=== PATIENT | female | born 1965 | race African-American/Black ===

== ENCOUNTER 2018-10-07 19:35 | Emergency (ER) | payer OTHER ==
[~2018-10-07] VITALS: Ht 165.1 cm; Wt 108.0 kg
[2018-10-07 20:15] LABS: Basophils # (auto) 0.1 uL; Basophils % (auto) 1.3 % (0.0-2.0); Eosinophils # (auto) 0.1 uL; Eosinophils % (auto) 1.9 % (0.0-7.0); Hematocrit 37.7 % (36.0-46.0); Hemoglobin 12.6 g/dL (12.2-16.2); Lymphocytes # (auto) 1.6 uL; Lymphocytes % (auto) 21.3 % (10.0-50.0); Mean Corpuscular Hemoglobin 30.5 pg (28.0-32.0); Mean Corpuscular Hgb Conc. 33.5 g/dL (32.0-36.0); Mean Corpuscular Volume 90.8 fL (80.0-100.0); Monocytes # (auto) 0.5 uL; Monocytes % (auto) 6.9 % (0.0-12.0); Neutrophils # (auto) 5.3 uL; Neutrophils % (auto) 68.6 % (37.0-80.0); Platelet Count (auto) 309 10^3/uL (140-450); Red Blood Cells 4.15 10^6/uL (4.0-5.20); Red Cell Distribution Width 13.8 % (11.8-14.3); White Blood Cell 7.7 10^3/uL (4.4-10.8)
[2018-10-07 20:31] LABS: BUN/Creatinine Ratio 11.7; Potassium 3.8 mmol/L (3.5-5.1)
[2018-10-07 20:32] LABS: Calcium 9.7 mg/dL (8.5-10.1)
[2018-10-07 20:35] LABS: Urine Bacteria NONE SEEN /hpf (None Seen); Urine Blood 1+ /uL (Negative); Urine Mucus FEW (None Seen); Urine Specific Gravity 1.021 (1.001-1.035); Urine WBC 2 /hpf (0 - 5)
[2018-10-07 20:35] LABS: Bilirubin, Total 0.3 mg/dL (0.2-1.0); Total Protein 8.1 g/dL (6.4-8.2)
[2018-10-08] MEDS ORDERED: MECLIZINE HCL 25 MG TAB PO ONE (09:00)
[2018-10-08] MEDS ORDERED: FUROSEMIDE 20 MG/2 ML VIAL IV ONE (09:00)
[2018-10-08] MEDS ORDERED: LOSARTAN POTASSIUM 50 MG TAB PO ONE (09:00)
[2018-10-08 11:15] VITALS: BP 134/89
== END 2018-10-08 13:14 | disposition home or self-care (01) ==
LOC: ER 19:37
DX: H81.10 Benign paroxysmal vertigo, unspecified ear (principal); J02.9 Acute pharyngitis, unspecified; I12.9 Hypertensive chronic kidney disease with stage 1 through stage 4 chronic kidney disease, or unspecified chronic kidney disease; N18.9 Chronic kidney disease, unspecified; Z90.710 Acquired absence of both cervix and uterus
CPT/HCPCS: 36415; 80053; 81001; 84484; 85025; 93005; 96374; 99284; J1940; J8597